=== PATIENT | female | born 1930 | race Caucasian/White ===

== ENCOUNTER 2018-03-10 14:29 | Inpatient (IN) | payer OTHER ==
[~2018-03-10] VITALS: Ht 160 cm; Wt 41.3 kg
[2018-03-10] MEDS ORDERED: CHOLESTEROL MED (14:44)
[2018-03-10 15:18] LABS: ABSOLUTE BASOPHILS 0.1 thou/uL (0.0-0.2); ABSOLUTE EOSINOPHILS 0.7 thou/uL (0.0-0.7); ABSOLUTE LYMPHOCYTES 2.3 thou/uL (0.8-5.3); ABSOLUTE NEUTROPHILS 4.7 thou/uL (1.6-8.1); BASOPHILS 1.3 %; EOSINOPHILS 8.2 %; HEMATOCRIT 36.5 % (37.0-47.0); HEMOGLOBIN 12.2 gm/dL (12.0-15.0); LYMPHOCYTES 26.4 %; MCH 31.8 pg (26.0-34.0); MCHC 33.3 g/dL (28.0-37.0); MCV 95.5 fL (80.0-100.0); MONOCYTES 11.4 %; MPV 7.9 fl. (7.2-11.1); NUCLEATED RBCS 0 /100WBC; PLATELET COUNT* 367 thou/uL (150-400); POLYS 52.7 %; RBC 3.83 mil/uL (4.20-5.00); RDW-CV 14.7 % (10.5-14.5); WBC 8.8 thou/uL (4.0-11.0)
[2018-03-10 15:24] LABS: ANION GAP 10 mmol/L (7-16); BUN 20 mg/dL (7-18); CALCIUM 9.3 mg/dL (8.5-10.1); CHLORIDE 101 mmol/L (98-107); CO2 25 mmol/L (21-32); CREATININE 1.1 mg/dL (0.6-1.3); GLUCOSE 102 mg/dL (70-99); POTASSIUM 4.1 mmol/L (3.5-5.1); SODIUM 136 mmol/L (136-145)
[2018-03-10 15:35] LABS: ALBUMIN 3.3 g/dL (3.4-5.0); ALKALINE PHOSPHATASE 61 U/L (46-116); NT-PRO BRAIN NAT PEPTIDE 207 pg/mL (<300); SGOT 13 U/L (15-37); SGPT 9 U/L (30-65); TOTAL BILIRUBIN 0.3 mg/dL (<0.1-1.0); TOTAL PROTEIN 7.4 g/dL (6.4-8.2); TROPONIN-I LEVEL <0.06 ng/mL (<0.06)
[2018-03-10 17:12] VITALS: BP 138/56
[2018-03-10 18:54] VITALS: BP 156/109
--- NOTE | 2018-03-10 18:57 | NUR ---
PT ARRIVED TO ROOM 205. GOWNED AND MONITOR ON. PT ORIENTED TO ROOM. FAMILY AT BS. BED ALARM ON. NO SWALLOWING DIFFICULTY. PT GIVEN DINNER
[2018-03-10 20:35] VITALS: BP 134/83
[2018-03-11] VITALS: BP 142/62
[2018-03-11 04:00] VITALS: BP 131/63
[2018-03-11 04:51] LABS: CHOLESTEROL 131 mg/dL (<200); HDL CHOLESTEROL 58 mg/dL (>40); LDL CHOLESTEROL 64 mg/dL (<100); TC:HDL 2.3 Ratio (Not establshd); TRIGLYCERIDE 46 mg/dL (<150); VLDL 9 mg/dL (<40)
[2018-03-11 04:52] LABS: SERUM ASSESSMENT Clear
--- NOTE | 2018-03-11 06:56 | NUR ---
PT IS ABLE TO COMMUNICATE HER NEEDS TO STAFF WITH MINOR DIFFICULTY; SHE IS [place] AND CONFUSED AT TIMES. SHE HAS DENIED THE NEED FOR PAIN MEDICATION UP THIS TIME. POSSIBLE ECHO LATER TODAY. PT UP WITH WALKER AND IS QUITE UNSTEADY; USING BEDSIDE COMODE UP TO THIS TIME.
[2018-03-11 08:00] VITALS: BP 169/69
--- NOTE | 2018-03-11 10:50 | NUR ---
ASSUMED CARE OF PT AT 0730. PT RESTING IN BED WAITING FOR BREAKFAST. PT A&0X3, FORGETFUL AND CONFUSED AT TIMES. PT IMPULSIVE WELL. BED ALARM IN PLACE. NIH COMPLETED- PT SCORING 1 DUE TO ORIENTATION. LEFT SIDED UPPER EXTREMITY WEAKNESS HAS SUBSIDED. PT DENIES ANY NUMBNESS AND TINGLING. NEURO CONSULT IN PLACE. PT TRACING SR ON THE RESOURCE RECOVERY SPECIALIST. ON RA SAT UPPER 90'S. DENIES ANY PAIN OR SHORTNESS OF BREATH AT THIS TIME. PT UP WITH 1-2 ASSIST, WEAK AND UNSTEADY AT TIMES. PT GOAL FOR TODAY IS NEURO CONSULT, REHAB CONSULT, PT, OT EVAL AND TREAT AND OBTAIN URINALYSIS. AM ASSESSMENT CHARTED. MEDICATIONS PER JUL. PT REPOSITIONS SELF WITH REMINDERS. HOURLY ROUNDING OBSERVED. BED IN LOW POSITION. BED ALARM IN PLACE. FALL PRECAUTIONS IN PLACE. CALL LIGHT WITHIN REACH. WILL CONTINUE PLAN OF CARE.
--- NOTE | 2018-03-11 11:17 | NUR ---
ACUTE INPATIENT REHAB UNIT CONSULT RECEIVED AND ACKNOWLEDGED BY DR. OLIVIER AND CHASER TAR. PATIENT HAS [facility] O WHICH UNFORTUNATELY IS NOT A PROVIDER ACCEPTED BY ACUTE REHAB AT [facility]. THANK YOU FOR THIS CONSULT.
[2018-03-11 11:22] VITALS: BP 117/48
--- NOTE | 2018-03-11 15:09 | NUR ---
Pt is A&O. Resides at home with her Dtr and grandson. Pt stated "I do what I can at home and my family does what I can't." Independent with IADLs. Pt has a RW. No hx of HH or SNF. Pt's goal is to return home at [place]. Discussed rehab consult v. SNF, Pt stated "my family helps me, I don't need that." CM left for Pt's dtr to discuss disposition, awaiting call back. Following.
[2018-03-11 15:25] VITALS: BP 119/59
--- NOTE | 2018-03-11 16:03 | 2DMMODE ---
[place] [address] 2 D/M-MODE ECHOCARDIOGRAM Name: BERNA BOB Room: [address] IN [facility]#: [id number] Admission: 03/10/18 Attend Phys: Katherin Tyler, Discharge: Date of : 32 Date of Service: 03/11/18 1603 Report #: [id number] THIS REPORT FOR: //name// APPROVED REPORT Study performed: 03/11/2018 10:27:38 EXAM: Comprehensive 2D, Doppler, and color-flow Echocardiogram Patient Location: In-Patient Room #: [facility] [place] Status: routine BSA: 1.35 HR: 71 bpm BP: 131/63 mmHg Rhythm: NSR Other Information Study Quality: Good Indications CVA/TIA Echo Enhancing Agent Indication: Rule out Shunt Agent(s) / Amount(s) Used: Agitated Saline 10 cc 2D Dimensions IVSd: 10.10 (7-11mm) LVOT Diam: 20.08 (18-24mm) LVDd: 40.13 mm PWd: 9.26 (7-11mm) Ascending Ao: 28.10 (22-36mm) LVDs: 20.33 (25-40mm) Aortic Root: 28.28 mm Volumes Left Atrial Volume (Systole) LA ESV Index: 29.50 mL/m2 Aortic Valve AoV Peak Chilo.: 1.14 m/s AO Peak Gr.: 5.22 mmHg LVOT Max P.06 mmHg AO Mean Gr.: 2.98 mmHg LVOT Mean P.45 mmHg LVOT Max V: 0.88 m/s AO V2 VTI: 22.23 cm LVOT Mean V: 0.55 m/s KRISH (VTI): 2.49 cm2 LVOT V1 VTI: 17.44 [place] [address] 2 D/M-MODE ECHOCARDIOGRAM Name: BERNA BOB Room: [address] IN .R.#: [id number] Admission: 03/10/18 Attend Phys: Katherin Tyler, Discharge: Date of : 32 Date of Service: 03/11/18 1603 Report #: [id number] Mitral Valve E/A Ratio: 0.78 MV Decel. Time: 171.97 ms MV E Max Chilo.: 0.91 m/s MV PHT: 49.87 ms MVA (PHT): 4.41 cm2 TDI E/Lateral E': 11.38 E/Medial E': 13.00 Medial E' Chilo.: 0.07 m/s Lateral E' Chilo.: 0.08 m/s Pulmonary Valve PV Peak Chilo.: 0.83 m/s PV Peak Gr.: 2.74 mmHg Tricuspid Valve RAP Estimate: 5.00 mmHg TR Peak Gr.: 18.93 mmHg RVSP: 24.00 mmHg PA Pressure: 24.00 mmHg Left Ventricle The left ventricle is normal size. There is normal LV segmental wall motion. There is normal left ventricular wall thickness. Left ventricular systolic function is normal. LVEF is 60-65%. Grade I - abnormal relaxation pattern. Right Ventricle The right ventricle is normal size. The right ventricular systolic function is normal. Atria The left atrium size is normal. Interatrial septum is intact without evidence of ASD or PFO. The right atrium size is normal. Aortic Valve Mild aortic valve sclerosis. No aortic regurgitation is present. There is no aortic valvular stenosis. Mitral Valve Moderate mitral annular calcification. Mild mitral regurgitation. No evidence of mitral valve stenosis. Tricuspid Valve The tricuspid valve is normal in structure. Mild tricuspid regurgitation. [place] [address] 2 D/M-MODE ECHOCARDIOGRAM Name: BERNA BOB Sachi Room: [address] IN [facility]#: [id number] Admission: 03/10/18 Attend Phys: Katherin Tyler, Discharge: Date of : 32 Date of Service: 03/11/18 1603 Report #: [id number] Pulmonic Valve The pulmonary valve is normal in structure. There is no pulmonic valvular regurgitation. Great Vessels The aortic root is normal in size. IVC is normal in size and collapses >50% with inspiration. Pericardium There is no pericardial effusion. <Conclusion> The left ventricle is normal size. There is normal left ventricular wall thickness. Left ventricular systolic function is normal. LVEF is 60-65%. Grade I - abnormal relaxation pattern. Mild mitral regurgitation. Mild tricuspid regurgitation. No pulmonary hypertension. IVC is normal in size and collapses >50% with inspiration. Interatrial septum is intact without evidence of ASD or PFO. Moderate mitral annular calcification. Mild aortic valve sclerosis. <ELECTRONICALLY SIGNED> By: Mahin Loomis MD, FACC 03/11/18 1603 02 160 Mahin Loomis MD, FACC /INF
[2018-03-11 16:10] LABS: URINE BILIRUBIN NEGATIVE (Negative); URINE BLOOD 3+ (Negative); URINE CLARITY CLEAR; URINE COLOR YELLOW; URINE GLUCOSE-RANDOM NEGATIVE (Negative); URINE KETONES NEGATIVE (Negative); URINE PROTEIN 1+ (Negative)
[2018-03-11 16:14] LABS: URINE LEUKOCYTES-REFLEX 3+ (Negative); URINE NITRITE-REFLEX POSITIVE (Negative)
[2018-03-11 16:21] LABS: BACTERIA-REFLEX >30 Many /HPF (None Seen); CASTS None Seen /LPF (None Seen); MUCUS 0-3 Light strn/LPF (None Seen); SQUAMOUS 0-3 Few /LPF (0-3); URINE RBC 3-10 Few /HPF (0-2); URINE WBC-REFLEX >25 Many /HPF (0-5)
[2018-03-11 16:22] LABS: CRYSTALS None Seen /LPF (None Seen)
--- NOTE | 2018-03-11 17:30 | NUR ---
NO ACUTE CHANGES THROUGHOUT SHIFT. REFER TO CHARTING. URINALYSIS OBTAINED-REFER TO RESULTS. PT HAD ECHO-REFER TO RESULTS. PT HAD PT, OT AND ST EVAL AND TREAT-TOLERATED WELL. PT UP TO BSC MULTIPLE TIMES WITH 1 ASSIST-UNSTEADY AT TIMES. PT DAUGHTER AT BEDSIDE THIS AFTERNOON-UPDATED ON CURRENT PLAN OF CARE. PT IMPULSIVE- BED ALARM IN PLACE. PT INCONT OF BOWEL AND BLADDER. PT PROGRESSING TOWARDS GOALS. CONTINUES TO TRACE SR ON THE PASS WORKER. ON RA SAT UPPER 90'S. DENIES ANY SHORTNESS OF BREATH OR PAIN THROUGHOUT SHIFT. NIH CONTINUES TO BE 1. MEDICATIONS PER MAR. PT REPOSITIONS SELF WITH REMINDERS. HOURLY ROUNDING OBSERVED. BED IN LOW POSITION. BED ALARM IN PLACE. FALL PRECAUTIONS IN PLACE. CALL LIGHT WITHIN REACH. WILL CONTINUE PLAN OF CARE.
--- NOTE | 2018-03-11 18:12 | EKG ---
[place] [address] ELECTROCARDIOGRAM REPORT Name: BRENNEN BOBADAM Karimi Room: [address] ADM IN M.R.#: [id number] Admission: 03/10/18 Attend Phys: Katherin Tyler MD Discharge: Date of : 32 Report #: [id number] THIS REPORT FOR: //name// [facility] ED Test Date: 2018-03-10 Test Time: 16:06:46 Pat Name: BERNA BOB Department: Room: [facility] Gender: F Visual Merchandising Coordinator: Peter CLARKE : 1930 Requested By: Yuan Stevens Order Number: [id number] MD: Mahin Loomis Measurements Intervals [place] Rate: 82 P: 45 OR: 151 QRS: -44 QRSD: 84 T: 23 QT: 380 QTc: 444 Interpretive Statements Sinus rhythm Possible left atrial enlargement Left axis deviation Borderline low voltage, extremity leads No previous ECG available for comparison Electronically Signed On 03-11-2018 18:12:20 CDT by Mahin Loomis [email or web address] <ELECTRONICALLY SIGNED> By: Mahin Loomis MD, [facility] 03/11/181811 1606 05 Mahin Loomis MD, [facility] /EPI
[2018-03-11 20:00] VITALS: BP 141/51
[2018-03-12] VITALS: BP 106/56
[2018-03-12 04:16] VITALS: BP 103/53
--- NOTE | 2018-03-12 05:31 | NUR ---
ASSUMED CARE OF PT AFTER REPORT AT 1930. PT A&OX4, FORGETFUL, IMPULSIVE & HARD OF HEARING. VSS. PHYSICAL ASSESSMENT COMPLETED AND CHARTED. PT ON RA WITH 96% O2 SAT. PT TRACING SR/SB ON TELE . PT UP WITH 1 ASSIST TO BEDSIDE COMMODE. NIH CHARTED. PT REQUESTED FOR SLEEPING PILL- DR POE INFORMED WITH NEW ORDER. DENIES ANY PAIN OR SOA. HS REST & SAFETY GOALS ACHIEVED. CALL LIGHT WITHIN REACH. BED IN LOW POSITION. BED ALARM ON.
[2018-03-12 08:00] VITALS: BP 123/55
--- NOTE | 2018-03-12 09:26 | NUR ---
CM spoke with Pt's dtr via phone. Dtr plans for Pt to return home at [place]. Dtr informed that Pt had just begun inhome PT through [facility], prior to her admission and wants Pt to continue HH PT at dc. Following.
--- NOTE | 2018-03-12 11:13 | NUR ---
SENIOR PROJECT ENGINEER SPOKE TO THE PATIENT TO DISCUSS DISCHARGE PLANNING NEEDS AND SKILLED AT D/C. PATIENT DECLINED STATING 'I WALKER A LOT FARTHER TODAY, AND I'M GOING HOME'. D/C MIGRATORY GAME BIRD BIOLOGIST INFORMED THE CM OF THIS INFO. CM WILL REMAIN AVAILABLE TO ASSIST AND FOLLOW NEEDED.
[2018-03-12 11:39] VITALS: BP 123/55
[2018-03-12] MEDS ORDERED: ASPIR 8181 M1 PO (11:48)
[2018-03-12] MEDS ORDERED: LIPITOR 20 MG T20 M1 PO (11:48)
[2018-03-12] MEDS ORDERED: MACROBID 100 M100 M2 PO (11:48)
[2018-03-12 12:00] VITALS: BP 105/54
--- NOTE | 2018-03-12 14:34 | NUR ---
RECEIVED REPORT. ASSUMED CARE OF PT AROUND 07. PT A&O X4, OCCASIONALLY FORGETFUL AND IMPULSIVE. VSS. O2 SAT >90% ON RA. VP OF TECHNOLOGY IN PLACE TRACING SR. AM ASSESSMENT AND VITALS COMPLETED CHARTED. PT ANXIOUS TO GO HOME. PT SEEN BY DR GOODWIN - TOENAILS TRIMMED. DISCHARGE ORDERS RECEIVED. DISCHARGE COMPLETED CHARTED. DISCHARGE SUMMARY, CARE NOTES AND SCRIPTS GONE OVER WITH PT. PT COMMUNICATES UNDERSTANDING. IV AND VP OF TECHNOLOGY REMOVED. ALL BELONGINGS GATHERED AND SENT HOME WITH THE PT. NIH AT DISCHARGE SCORE OF 1. PT LEFT UNIT IN WC WITH NURSING STAFF. PT LEFT HOSPITAL IN CAR WITH SON.
[2018-03-12 14:49] VITALS: BP 123/55
--- NOTE | 2018-03-15 17:15 | EEG ---
[address] [address] EEG STUDY REPORT Name: BERNA BOB Sachi Room: [address] IN M.R.#: [id number] Admission: 03/10/18 Attend Phys: Katherin Tyler MD Discharge: 03/12/18 Date of : 31 Report #: [id number] THIS REPORT FOR: //name// CC: Katherin Costa DATE OF SERVICE: 03/11/2018 This patient is being evaluated for altered mental status and weakness on the left side. She had a stroke. EEG was done to look for any seizure activity arising from there. Background activity in this patient's EEG is about 9-10 Hz and 40 microvolt. The patient went to sleep and that was associated with bilaterally symmetrical sleep spindle and vertex sharp waves. Throughout the record, no active epileptiform activity was noticed. Photic stimulation is unremarkable. IMPRESSION: This patient's EEG does not show any definite epileptiform activity. It is intermixed with a lot of theta range slowing on both sides and lot of artifact. <ELECTRONICALLY SIGNED> By: Puneet Castillo MD 03/15/18 1715 0828 [id number] Castillo MD /nt
--- NOTE | 2018-03-15 17:15 | CON ---
[address] [address] CONSULTATION Name: BERNA BOB Room: [address] IN M.R.#: [id number] Admission: 03/10/18 Attend Phys: Katherin Tyler MD Discharge: 03/12/18 Date of : 31 Report #: [id number] THIS REPORT FOR: //name// CC: Katherin Costa DATE OF SERVICE: 03/11/2018 HISTORY OF PRESENT ILLNESS: This is an 87-year-old female patient who was evaluated by me for left arm weakness. History was not very clear yesterday when I talked to the Emergency Room. The patient is a poor historian, but it does look like that her weakness started suddenly, it looks like she woke up with it. She also has some weakness in the lower extremities, but I believe that is her baseline. She denies any neck pain. She thinks there is some tingling in the left upper extremity. She has a prior history of hip replacement and that may be part of the reason she has ambulation difficulty. The duration of this is really unclear. REVIEW OF SYSTEMS: Indicate that she has history of UTI. She denies any prior history of stroke. It is difficult to get history from her. I carried out the 14-point review of systems, but she denies any new eye, ENT, cardiac, respiratory, GI, , musculoskeletal, constitutional, dermatological, hematological, psychiatric, throat, allergic symptom associated with present symptomatology which has not been described above. PAST MEDICAL HISTORY: Noncontributory and is negative for any stroke. FAMILY HISTORY: Negative for early age stroke. SOCIAL HISTORY: She indicates she lives with the family and she is able to do most of the things by herself. She does have a history of smoking. PHYSICAL EXAMINATION: Indicate she is alert. She is responsive. She can follow simple commands. Her memory, fund of knowledge is poor. Her speech is intact. Cranial nerve examination 2-12 looks mostly unremarkable. She does have some weakness in the left upper extremity. Weakness in the lower extremities is in generalized fashion. She indicates her position sense is intact. Reflexes are symmetrical. Tone is unremarkable. There is no cerebellar sign in this patient. I could not look at the patient's fundus. There is no carotid bruit. There is no thyroid mass. She is a thinly-built individual who does not have any dysmorphic features of eyes, ears and face. Cardiac examination is unremarkable. No marked respiratory difficulty was noticed, although she has some scattered rhonchi on both sides. Pulses are difficult to feel. She has no edema, cyanosis or jaundice. Blood pressure is 117/48, respirations 18, pulse is 76, temperature is 98.2. [place] [address] CONSULTATION Name: PAULINOBERNA Karimi Room: [address] IN M.R.#: [id number] Admission: 03/10/18 Attend Phys: Katherin Tyler MD Discharge: 03/12/18 Date of : 32 Report #: [id number] LABORATORY DATA: Indicate white count of 8.8. Sodium is normal. Imaging studies were reviewed and that does show findings consistent with right-sided stroke. IMPRESSION: 1. Right-sided stroke. 2. Left-sided weakness secondary right-sided stroke. 3. Ambulation difficulty, which is old. RECOMMENDATIONS: 1. Continue aspirin. 2. Statin. 3. DVT prophylaxis. 4. PT, OT. 5. Rehabilitation consult. 6. She will need more workup as an outpatient, especially because of ambulation difficulty. May be starting with EMG. All of it was discussed with the patient in great detail and she wants to follow this plan and we will do that. We will see if she qualifies for the rehabilitation. <ELECTRONICALLY SIGNED> By: Puneet Castillo MD 03/15/18 1715 1339 [id number] Castillo MD /nt
== END 2018-03-12 14:39 | disposition home health service (06) | DRG 64 ==
LOC: M.ERS 14:29 → M.TBA-ER 16:13 → M.2W 16:13
PROVIDERS: Emergency Medicine Emergency Medical Services; ADMIT Internal Medicine
DX: I63.89 Other cerebral infarction (principal); G93.41 Metabolic encephalopathy; N39.0 Urinary tract infection, site not specified; G81.94 Hemiplegia, unspecified affecting left nondominant side; F17.210 Nicotine dependence, cigarettes, uncomplicated; E78.00 Pure hypercholesterolemia, unspecified; Q06.4 Hydromyelia; Z79.899 Other long term (current) drug therapy

== ENCOUNTER 2019-08-18 12:14 | Emergency (ER) | payer OTHER, MEDICAID ==
[~2019-08-18] VITALS: Ht 157.5 cm; Wt 40.4 kg
[~2019-08-18 12:14] MED LIST: ASPIR 8181 M1 PO; CHOLESTEROL MED; LIPITOR 20 MG T20 M1 PO; MACROBID 100 M100 M2 PO
[2019-08-18 12:46] LABS: URINE BLOOD 3+ (Negative); URINE CLARITY CLOUDY; URINE COLOR DARK YELLOW; URINE GLUCOSE-RANDOM NEGATIVE (Negative); URINE KETONES NEGATIVE (Negative); URINE NITRITE-REFLEX NEGATIVE (Negative); URINE PROTEIN 2+ (Negative)
[2019-08-18 12:50] LABS: URINE BILIRUBIN 1+ (Negative); URINE LEUKOCYTES-REFLEX 2+ (Negative)
[2019-08-18 12:51] LABS: ICTOTEST (BILI CONFIRMATORY) Negative (Negative)
[2019-08-18 12:54] LABS: SQUAMOUS 0-3 Few /LPF (0-3)
[2019-08-18 12:55] LABS: BACTERIA-REFLEX >30 Many /HPF (None Seen)
[2019-08-18 12:56] LABS: CASTS None Seen /LPF (None Seen); CRYSTALS None Seen /LPF (None Seen); MUCUS None Seen strn/LPF (None Seen)
[2019-08-18 13:02] LABS: ABSOLUTE BASOPHILS 0.1 thou/uL (0.0-0.2); ABSOLUTE EOSINOPHILS 0.2 thou/uL (0.0-0.7); ABSOLUTE NEUTROPHILS 10.5 thou/uL (1.6-8.1); EOSINOPHILS 1.3 %; HEMATOCRIT 35.7 % (37.0-47.0); LYMPHOCYTES 7.8 %; MCH 31.4 pg (26.0-34.0); MCHC 33.7 g/dL (28.0-37.0); MCV 93.4 fL (80.0-100.0); MONOCYTES 7.7 %; MPV 8.3 fl. (7.2-11.1); NUCLEATED RBCS 0 /100WBC; PLATELET COUNT* 261 thou/uL (150-400); POLYS 82.2 %; RBC 3.82 mil/uL (4.20-5.00); RDW-CV 15.7 % (10.5-14.5); WBC 12.8 thou/uL (4.0-11.0)
[2019-08-18 13:15] LABS: CALCIUM 7.9 mg/dL (8.5-10.1); CREATININE 1.2 mg/dL (0.6-1.3); POTASSIUM 4.3 mmol/L (3.5-5.1)
[2019-08-18 13:18] LABS: ALBUMIN 3.3 g/dL (3.4-5.0); TOTAL BILIRUBIN 0.7 mg/dL (<0.1-1.0); TOTAL PROTEIN 6.8 g/dL (6.4-8.2)
[2019-08-18 15:59] VITALS: BP 122/82
--- NOTE | 2019-08-18 16:16 | EKG ---
[place] [address] ELECTROCARDIOGRAM REPORT Name: BRENNEN BOBADAM Karimi Room: [facility]#: [id number] Admission: 08/18/19 Attend Phys: Discharge: 08/18/19 Date of : 32 Date of Service: 08/18/19 1225 Report #: [id number] THIS REPORT FOR: //name// [facility] ED Test Date: 2019-08-18 Test Time: 12:25:29 Pat Name: BERNA BOB Department: Room: Gender: Saw Repairer: BARONE : 1930 Requested By: Debora Feng Order Number: [id number] MD: Mahin Loomis Measurements Intervals [place] Rate: 81 P: 58 [place]: 152 QRS: -44 QRSD: 81 T: 49 QT: 373 QTc: 433 Interpretive Statements Sinus rhythm Probable left atrial enlargement Left axis deviation Borderline low voltage, extremity leads Baseline wander in lead(s) V6 Compared to ECG 03/10/2018 16:06:46 No significant changes Electronically Signed On 08-18-2019 16:15:11 CDT by Mahin Loomis [email or web address] <ELECTRONICALLY SIGNED> By: Mahin Loomis MD, FAC 08/18/19 1615 1225 1225 Mahin Loomis MD, [facility] /EPI
== END 2019-08-18 16:01 | disposition home or self-care (01) ==
LOC: M.ERS 12:14
PROVIDERS: Physician Assistant
DX: S32.030A Wedge compression fracture of third lumbar vertebra, initial encounter for closed fracture (principal); N20.0 Calculus of kidney; N39.0 Urinary tract infection, site not specified; M25.552 Pain in left hip; E78.5 Hyperlipidemia, unspecified; W18.39XA Other fall on same level, initial encounter; Y93.89 Activity, other specified; Y92.89 Other specified places as the place of occurrence of the external cause; Y99.8 Other external cause status

== ENCOUNTER 2019-08-26 09:21 | Inpatient (IN) | payer OTHER, MEDICAID ==
[~2019-08-26] VITALS: Ht 160 cm; Wt 40.4 kg
[2019-08-26 08:00] VITALS: BP 143/66
[2019-08-26 09:21] VITALS: BP 133/59
[2019-08-26 10:05] LABS: HEMATOCRIT 39.9 % (37.0-47.0); HEMOGLOBIN 13.2 gm/dL (12.0-15.0); MCHC 33.2 g/dL (28.0-37.0); MCV 93.4 fL (80.0-100.0); MPV 8.3 fl. (7.2-11.1); NUCLEATED RBCS 0 /100WBC; PLATELET COUNT* 421 thou/uL (150-400); RBC 4.28 mil/uL (4.20-5.00); RDW-CV 15.6 % (10.5-14.5); WBC 15.9 thou/uL (4.0-11.0)
[2019-08-26 10:15] LABS: APTT 30.3 Seconds (25.0-31.3); CALCIUM 8.7 mg/dL (8.5-10.1); CREATININE 1.2 mg/dL (0.6-1.3); INR 1.2; POTASSIUM 3.6 mmol/L (3.5-5.1); PROTIME 12.1 Seconds (9.20-11.50)
[2019-08-26 10:26] LABS: ALBUMIN 3.2 g/dL (3.4-5.0); TOTAL BILIRUBIN 0.4 mg/dL (<0.1-1.0); TOTAL PROTEIN 7.6 g/dL (6.4-8.2)
[2019-08-26 10:52] LABS: URINE BILIRUBIN NEGATIVE (Negative); URINE BLOOD 3+ (Negative); URINE CLARITY TURBID; URINE COLOR YELLOW; URINE GLUCOSE-RANDOM NEGATIVE (Negative); URINE KETONES NEGATIVE (Negative); URINE NITRITE-REFLEX NEGATIVE (Negative); URINE PROTEIN 2+ (Negative); URINE UROBILINOGEN 0.2 E.U./dl (0.2-1.0)
[2019-08-26 10:53] LABS: URINE LEUKOCYTES-REFLEX 3+ (Negative)
[2019-08-26 10:57] LABS: BACTERIA-REFLEX >30 Many /HPF (None Seen); CASTS None Seen /LPF (None Seen); CRYSTALS None Seen /LPF (None Seen); MUCUS 4-6 Moderate strn/LPF (None Seen); SQUAMOUS 0-3 Few /LPF (0-3); URINE RBC >20 Many /HPF (0-2); URINE WBC-REFLEX >25 Many /HPF (0-5)
[2019-08-26 11:14] LABS: ABSOLUTE EOSINOPHILS 1.7 thou/uL (0.0-0.7); ABSOLUTE LYMPHOCYTES 0.5 thou/uL (0.8-5.3); ABSOLUTE MONOCYTES 1.1 thou/uL (0.0-1.2); ABSOLUTE NEUTROPHILS 12.6 thou/uL (1.6-8.1); PLATELET ESTIMATE ADEQUATE; TOXIC GRANULATION 1+
[2019-08-26 11:15] LABS: ANISOCYTOSIS 1+
[2019-08-26 11:30] VITALS: BP 143/66
--- NOTE | 2019-08-26 15:45 | EKG ---
[place] [address] ELECTROCARDIOGRAM REPORT Name: BRENNEN BOBADAM Karimi Room: [address] ADM IN M.R.#: [id number] Admission: 08/26/19 Attend Phys: Chris Evans, Discharge: Date of : 32 Date of Service: 08/26/19 0926 Report #: [id number] THIS REPORT FOR: //name// [facility] ED Test Date: 2019-08-26 Test Time: 09:26:31 Pat Name: BERNA BOB Department: Room: [facility] Gender: F Back Gray Cloth Washer: : 1930 Requested By: Ernie Jackman Order Number: [id number] MD: Jhoan Truong Measurements Intervals [place] Rate: 89 P: 60 [place]: 140 QRS: -72 QRSD: 87 T: 52 QT: 382 QTc: 465 Interpretive Statements Sinus rhythm LAD, consider left anterior fascicular block Low voltage, extremity leads Electronically Signed On 08-26-2019 15:43:24 CDT by Jhoan Truong [email or web address] <ELECTRONICALLY SIGNED> By: Jhoan Truong MD, [facility] 08/26/19 1543 0926 0926 Jhoan Truong MD, [facility] /EPI
[2019-08-26 16:00] VITALS: BP 138/90
[2019-08-26 19:45] VITALS: BP 115/65
[2019-08-27] VITALS: BP 131/68
[2019-08-27 04:00] VITALS: BP 153/62
[2019-08-27 04:45] LABS: ABSOLUTE BASOPHILS 0.1 thou/uL (0.0-0.2); ABSOLUTE EOSINOPHILS 0.1 thou/uL (0.0-0.7); ABSOLUTE LYMPHOCYTES 1.5 thou/uL (0.8-5.3); ABSOLUTE MONOCYTES 0.4 thou/uL (0.0-1.2); ABSOLUTE NEUTROPHILS 9.4 thou/uL (1.6-8.1); BASOPHILS 1.2 %; EOSINOPHILS 0.8 %; HEMATOCRIT 36.1 % (37.0-47.0); LYMPHOCYTES 12.9 %; MCH 30.7 pg (26.0-34.0); MCHC 33.1 g/dL (28.0-37.0); MCV 92.8 fL (80.0-100.0); MONOCYTES 3.7 %; MPV 8.2 fl. (7.2-11.1); NUCLEATED RBCS 0 /100WBC; PLATELET COUNT* 384 thou/uL (150-400); POLYS 81.4 %; RBC 3.89 mil/uL (4.20-5.00); RDW-CV 15.1 % (10.5-14.5); WBC 11.5 thou/uL (4.0-11.0)
[2019-08-27 05:00] LABS: CALCIUM 8.1 mg/dL (8.5-10.1); POTASSIUM 3.7 mmol/L (3.5-5.1)
[2019-08-27 08:30] VITALS: BP 138/92
[2019-08-27 20:37] VITALS: BP 146/72
[2019-08-28 00:42] VITALS: BP 138/69
[2019-08-28 04:43] LABS: ABSOLUTE BASOPHILS 0.2 thou/uL (0.0-0.2); ABSOLUTE EOSINOPHILS 0.6 thou/uL (0.0-0.7); ABSOLUTE LYMPHOCYTES 2.2 thou/uL (0.8-5.3); ABSOLUTE MONOCYTES 2.6 thou/uL (0.0-1.2); ABSOLUTE NEUTROPHILS 16.5 thou/uL (1.6-8.1); EOSINOPHILS 2.7 %; HEMATOCRIT 33.1 % (37.0-47.0); HEMOGLOBIN 11.2 gm/dL (12.0-15.0); MCH 31.1 pg (26.0-34.0); MCHC 33.7 g/dL (28.0-37.0); MCV 92.4 fL (80.0-100.0); MONOCYTES 11.6 %; MPV 8.3 fl. (7.2-11.1); NUCLEATED RBCS 0 /100WBC; PLATELET COUNT* 406 thou/uL (150-400); POLYS 74.7 %; RBC 3.59 mil/uL (4.20-5.00); RDW-CV 15.3 % (10.5-14.5); WBC 22.1 thou/uL (4.0-11.0)
[2019-08-28 04:59] LABS: CALCIUM 8.1 mg/dL (8.5-10.1); CREATININE 0.8 mg/dL (0.6-1.3); POTASSIUM 3.5 mmol/L (3.5-5.1)
[2019-08-28 08:00] VITALS: BP 130/67
[2019-08-28] MEDS ORDERED: AUGMENTIN 875-1 EACH PO (13:29)
[2019-08-28] MEDS ORDERED: ACIDOPHILUS LA1 EAC1 PO (13:32)
[2019-08-28 13:34] VITALS: BP 130/67
== END 2019-08-28 16:00 | disposition home or self-care (01) | DRG 871 ==
LOC: M.ERS 09:21 → M.TBA-ER 10:42 → M.ORTHSURG 10:42 → M.2W 08-27 13:51
PROVIDERS: Family Medicine; ADMIT Internal Medicine
DX: A41.9 Sepsis, unspecified organism (principal); G93.41 Metabolic encephalopathy; J96.01 Acute respiratory failure with hypoxia; J69.0 Pneumonitis due to inhalation of food and vomit; N39.0 Urinary tract infection, site not specified; M48.56XA Collapsed vertebra, not elsewhere classified, lumbar region, initial encounter for fracture; I69.354 Hemiplegia and hemiparesis following cerebral infarction affecting left non-dominant side; F03.90 Unspecified dementia, unspecified severity, without behavioral disturbance, psychotic disturbance, mood disturbance, and anxiety; E78.5 Hyperlipidemia, unspecified; J40 Bronchitis, not specified as acute or chronic; F17.210 Nicotine dependence, cigarettes, uncomplicated; J43.9 Emphysema, unspecified; Z20.828 Contact with and (suspected) exposure to other viral communicable diseases; Z87.442 Personal history of urinary calculi; Z79.82 Long term (current) use of aspirin; Z79.899 Other long term (current) drug therapy